=== PATIENT | female | born 1950 | race Caucasian/White ===

== ENCOUNTER → 2016-04-24 | Outpatient (CLI) | payer OTHER, MEDICARE ==
[~2016-04-24] VITALS: Ht 167.6 cm; Wt 68.0 kg
[~2016-04-24] MED LIST: ACTEMRA80 MG/4 ML IV; ALEVE220 MG PO; AMBIEN 10 MG TA10 MG PO; AMBIEN CR12.5 MG PO; ARAVA20 MG PO; ATORVASTATIN CA40 MG PO; BACLOFEN 10MG T10 MG PO; CALCIUM 500 +1 EAC5 PO; CARISOPRODOL 3350 MG PO; CELEXA40 MG PO; CYMBALTA60 MG PO; ESCITALOPRAM OX10 MG PO; FENTANYL; FENTANYL/BUPIVACAINE; FOLIC ACID1 MG PO; FOSAMAX 70 MG T70 MG PO; FUROSEMIDE 20 M20 MG PO; HYDROCODON-ACE1 EAC5 PO; IBUPROFEN 600600 M1 PO; LEXAPRO 10 MG T10 M1 PO; LIDODERM 5%1 PATCH TOP; LISINOPRIL20 MG PO; LISINOPRIL40 MG PO; LYRICA 75 MG CA75 MG PO; MEDROLDOSEPACK PO; METHOTREXA250 MG/10 IM; METHOTREXATE 22.5 MG PO; MOTION RELIEF25 MG PO; MS CONTIN30 MG PO; MULTI VITAMIN1 EACH PO; NEURONTIN 300300 M1 PO; NORCO 10-325 T1 EACH PO; OMEPRAZOLE40 MG PO; OPANA ER15 M1 PO; PERCOCET 10-321 EACH PO; PERCOCET 5-3251 EACH; PERCOCET 5-3251 EACH PO; PREDNISONE 5 MG5 MG PO; PROMS25 WY RECTAL; RECLAST 55 MG/1002 IVPB; VALIUM2 MG PO; VITAMIN D1000 UNI1 PO; VITAMIN E100 UNI3 PO; XANAX 0.5 MG0.5 M1 PO; [UNRECOGNIZED DRUG - OTHER]; [UNRECOGNIZED DRUG - OTHER] IV
--- NOTE | ~2016-04-24 | HPC ---
[facility] [address] [place] [address] PAIN MANAGEMENT CONSULTATION Name: YAMILETH CLEMENS Room #: REG [facility] Dayana.#: [id number] Admission: 04/24/16 Attend Phys: Juan Manuel Valdes MD Discharge: Date of : 54 Report #: [id number] THIS REPORT FOR: //name// CC: Abi Valdes DATE OF REGISTRATION: 04/24/2016. Followup visit for management of intrathecal infusion pump. The patient returns to pain clinic today for refill of her intrathecal infusion pump. She is doing reasonably well. She is grieving a bit at loss of her dog who she had to put down yesterday. She had her puppy for 10 years. She continues to complain of chronic back pains related to multiple back surgeries including her recent thoracic laminectomy and fusion. I do not think she is better perhaps since that last surgery and she does not complain as vocally or she has in the past. Currently, she reports that her medication she thinks is adequate intrathecal infusion pump. She does not need adjustments, pain score is a 6/10, most of the pain is left-sided and also some right sacroiliac joint pain. MEDICATIONS: Lexapro, gabapentin, carisoprodol, hydrocodone, vitamins, lisinopril, naproxen, cholecalciferol, alprazolam, zolpidem, prednisone. PHYSICAL EXAMINATION: GENERAL: She is pleasant today and not as anxious that I have seen her. She seemed calm and relaxed. VITAL SIGNS: Her blood pressure is 142/88, heart rate 104, respirations 100. EXTREMITIES: She has some tenderness across her low back and her scar. Her pump is in the left lower quadrant, nontender. She is able to easily move from sitting to standing position and ambulate without instability. There appears to be no focal weakness of the lower extremities. IMPRESSION: 1. Chronic back pain, status post multiple back surgeries. 2. Management of intrathecal infusion pump. 3. Management of high risk oral medication under terms of an agreement. PROCEDURE: Refill of intrathecal infusion pump. Skin was prepped with ChloraPrep. Skin was anesthetized 22-gauge non-coring needle advanced in the pump. Old medication removed and discarded, refilled with a combination of fentanyl and bupivacaine. Reprogramming session was performed without increasing her dose. Her new YASMIN is 50 months. Her daily dose fentanyl [address] [address] PAIN MANAGEMENT CONSULTATION Name: YAMILETH CLEMENS Room #: REG [facility] Serrato#: [id number] Admission: 04/24/16 Attend Phys: Juan Manuel Valdes MD Discharge: Date of : 54 Report #: [id number] bupivacaine 3.59 mg per day. Low reservoir alarm date is 07/27/2016, we will see her then. <ELECTRONICALLY SIGNED> By: Juan Manuel Valdes MD 05/17/16 1130 1635 0600 Juan Manuel Valdes MD /james
[2016-04-24 13:51] VITALS: BP 142/88
== END | disposition home or self-care (01) ==
LOC: PAIN 07:20
DX: M54.5 Low back pain (principal); G89.29 Other chronic pain; Z98.890 Other specified postprocedural states

== ENCOUNTER → 2016-07-24 | Outpatient (CLI) | payer OTHER, MEDICARE ==
[~2016-07-24] VITALS: Ht 165.1 cm; Wt 66.8 kg
--- NOTE | ~2016-07-24 | HPC ---
[facility] [address] [place] [address] PAIN MANAGEMENT CONSULTATION Name: YAMILETH CLEMENS Room #: REG [facility].#: [id number] Admission: 07/24/16 Attend Phys: Juan Manuel Valdes MD Discharge: Date of : 54 Report #: [id number] THIS REPORT FOR: //name// CC: Abi Valdes DATE OF SERVICE: 07/24/2016 Followup visit for management of intrathecal infusion pump. The patient returns to pain clinic today for refill of her intrathecal infusion pump. She has a combination of bupivacaine and fentanyl. She is on time for her refill. She has 20 mL pump, which is typically providing about 100 days. She reports today that she continues to have low back pain radiating her left side and her sacroiliac joint at level 4/10. She has completed with the current infusion. PHYSICAL EXAMINATION: GENERAL: Pleasant, alert and oriented. No signs of overmedication. VITAL SIGNS: Blood pressure is 153/92, heart rate 79. IMPRESSION: 1. Chronic back pain, status post multiple back surgeries with recent thoracic laminectomy and fusion. 2. Management of intrathecal infusion pump. 3. Management of high risk medication. PROCEDURE: Pump is refilled in the usual fashion. Skin prepped with ChloraPrep and anesthetized 22-gauge non-coring needle advanced in the pump. Old medication removed and discarded. Pump was refilled with fentanyl and bupivacaine. Reprogramming session was performed and she was discharged. She was given a prescription for hydrocodone and Soma under terms of our opioid agreement. Urine drug screen was reviewed. By: [id number] Juan Manuel Valdes MD /nt
[2016-07-24 09:03] VITALS: BP 153/92
== END | disposition home or self-care (01) ==
LOC: PAIN 07:01
DX: M54.5 Low back pain (principal); G89.29 Other chronic pain; Z98.890 Other specified postprocedural states

== ENCOUNTER 2016-08-09 12:08 | Emergency (ER) | payer OTHER, MEDICARE ==
[~2016-08-09] VITALS: Ht 165.1 cm; Wt 65.8 kg
[2016-08-09 13:18] LABS: HEMATOCRIT 31.5 % (37.0-47.0); HEMOGLOBIN 9.7 gm/dL (12.0-15.0); MCH 21.6 pg (26.0-34.0); MCHC 30.9 g/dL (28.0-37.0); MCV 70.1 fL (80.0-100.0); PLATELET COUNT 338 thou/uL (150-400); RDW 18.2 % (10.5-14.5); WBC 10.1 thou/uL (4.0-11.0)
[2016-08-09 13:20] LABS: MANUAL DIFF YES
[2016-08-09] MEDS ORDERED: PRILOSEC 20 MG20 MG PO (13:29)
[2016-08-09] MEDS ORDERED: ANUSOL-HC25 MG RECTAL (13:29)
[2016-08-09 13:30] LABS: CALCIUM 9.2 mg/dL (8.5-10.1); POTASSIUM 3.9 mmol/L (3.5-5.1)
[2016-08-09 13:32] LABS: APTT 24.1 Seconds (24.5-32.8); PROTIME 9.8 Seconds (9.3-11.4)
[2016-08-09 13:35] LABS: ALBUMIN 3.4 g/dL (3.4-5.0); TOTAL BILIRUBIN 0.3 mg/dL (<0.1-1.0); TOTAL PROTEIN 6.8 g/dL (6.4-8.2)
[2016-08-09 13:41] LABS: ABSOLUTE NEUTROPHILS 7.1 thou/uL (1.4-8.2); TOTAL CELL COUNT 100
[2016-08-09 13:42] LABS: ANISOCYTOSIS 1+; HYPOCHROMASIA 1+; MICROCYTES 1+
== END 2016-08-09 14:04 | disposition home or self-care (01) ==
LOC: ER 12:08
PROVIDERS: Emergency Medicine
DX: K62.5 Hemorrhage of anus and rectum (principal); R10.12 Left upper quadrant pain; D64.89 Other specified anemias; Z98.890 Other specified postprocedural states; Z96.653 Presence of artificial knee joint, bilateral; I10 Essential (primary) hypertension; E78.5 Hyperlipidemia, unspecified; F32.9 Major depressive disorder, single episode, unspecified; J45.909 Unspecified asthma, uncomplicated; Z96.89 Presence of other specified functional implants; Z88.1 Allergy status to other antibiotic agents; Z88.5 Allergy status to narcotic agent; Z88.6 Allergy status to analgesic agent

== ENCOUNTER → 2016-08-15 | Outpatient (CLI) | payer OTHER, MEDICARE ==
[~2016-08-15] MED LIST changes: +ANUSOL-HC25 MG RECTAL; +PRILOSEC 20 MG20 MG PO
--- NOTE | ~2016-08-15 | S ---
[facility] [place] [address] SURGICAL PATH RPT PROCEDURE Name: NORMA ZIEGLER Room #: REG [facility].#: [id number] Admission: 08/15/16 Date of : 54 Discharge: Report #: [id number] Path Case #: [id number] PATHOLOGY REPORT COLLECTION DATE: 08/15/2016 RECEIVED DATE: 08/15/2016 SUBMITTING PHYS: Dr. Gerald Alfonso OTHER PHYS: Dr. Abi Stover SPECIMEN(S) RECEIVED: A.Rectal polyp B.Gastric ulcer * * * * * * * * * * * * FINAL DIAGNOSIS: A. Polyp, rectal polyp, endoscopic biopsy: - Tubular adenoma. - Negative for high grade dysplasia. B. Gastric mucosa, gastric ulcer", endoscopic biopsy: - Moderate reactive gastropathy associated with hyperplastic changes. - Negative for intestinal metaplasia or atrophy. - Negative for Helicobacter pylori. COMMENT: Helicobacter pylori immunohistochemical stain performed on block B1- negative. (IUV; 08/18/16) PATHOLOGIST: Deepti Foster M.D. REPORT ELECTRONICALLY SIGNED BY: Deepti Foster M.D. DATE/TIME: 08/18/2016 17:41 * * * * * * * * * * * * GROSS PATHOLOGY: A. Received in formalin labeled "Norma Ziegler, rectal polyp," are three segments of hernandez soft tissue measuring 0.5 x 0.5 x 0.1 cm in aggregate dimensions and ranging from 0.2 to 0.5 cm in maximum dimension. The specimen is submitted entirely in cassette A1. B. Received in formalin labeled "Norma Ziegler, gastric ulcer biopsy," are three segments of hernandez soft tissue measuring 0.8 x 0.6 x 0.1 cm in aggregate dimensions and ranging from 0.2 to 0.6 cm in maximum dimension. The specimen is submitted entirely in cassette B1. (CAA; 08/16/2016) CLINICAL HISTORY: [facility] [place] [address] SURGICAL PATH RPT PROCEDURE Name: NORMA ZIEGLER Room #: REG [facility]#: [id number] Admission: 08/15/16 Date of : 54 Discharge: Report #: [id number] Path Case #: [id number] Anemia, gastric ulcer INITIAL CPT CODE(S): A; 04378 B; 76253, 33850 Professional services performed by [facility] at [address], [place] [address] Technical services performed by [facility] at [address] [place] [address], [address] [address]. [facility] [address] [place] [address] PHONE: [phone] DIRECTOR: Shahid Lee M.D. * * * END OF REPORT * * *
--- NOTE | ~2016-08-15 | P ---
[facility] [place] [address] PROCEDURE REPORT Name: YAMILETH CLEMENS Room #: REG [facility]#: [id number] Admission: 08/15/16 Attend Phys: Gerald Pearce Discharge: Date of : 54 Report #: [id number] THIS REPORT FOR: //name// CC: Gerald Stover MD DATE OF SERVICE: 08/15/2016 PROCEDURE PERFORMED: Colonoscopy with biopsies and upper endoscopy with biopsies. HISTORY OF PRESENT ILLNESS: The patient is a 66-year-old female who has been complaining of blood in her stools. Initially, it was described as bright red blood per rectum; however, there are times when it is somewhat dark and maroon. She has a previous history of colon polyps. She was actually scheduled for colonoscopy with myself back in May, but was unable to tolerate prep. The plan is to proceed with colonoscopy first; if this is negative and no signs of bleeding, then upper endoscopy. She denies any NSAID use. She apparently is on omeprazole on a daily basis. DESCRIPTION OF PROCEDURE: The risks and benefits of the procedure were explained to the patient, those risks including but not limited to bleeding, perforation, the risk of sedation. She understood these risks and gave informed consent. Sedation was given using propofol per anesthesia. Next, a digital rectal exam was initially performed, which was normal. Next, using a standard Plisteninon colonoscope, the scope was placed in the patient's anus and advanced under direct vision to the cecum. The overall prep was excellent. The cecum and ileocecal valve were normal in appearance. Terminal ileum was intubated, normal in appearance. Ascending, transverse, descending and sigmoid colon were normal. In the rectum, there was a 5 mm sessile polyp. This was removed with cold forceps, otherwise normal. On retroflexion, small nonbleeding internal hemorrhoid was noted as well. The scope was then withdrawn and procedure terminated. The patient tolerated the procedure well. The bed was then returned and an upper endoscopy was then performed. Using a standard Lookmashn upper endoscope, the scope was placed in the patient's mouth and advanced under direct vision through the esophagus, stomach and into the second portion of the duodenum. The esophagus was normal throughout. The GE junction was normal. Overall, the gastric mucosa was normal in the fundus and body; however, in the antrum just above the pylorus, a single gastric ulcer was noted. This was clean white based and approximately 8 mm in diameter. There was no stigmata of bleeding. There was some surrounding erythema. Biopsies were obtained to rule out H. pylori. The pylorus was normal and patent. The duodenal bulb, first and second portion were all normal. The scope was then withdrawn and the procedure terminated. The patient tolerated the procedure well. [address] [address] PROCEDURE REPORT Name: YAMILETH CLEMENS Room #: REG [facility] Rojelio#: [id number] Admission: 08/15/16 Attend Phys: Gerald Pearce Discharge: Date of : 54 Report #: [id number] IMPRESSION: 1. Gastric ulcer, possible source of recent gastrointestinal bleed, would recommend a b.i.d. PPI therapy at this time for the next month. 2. Small rectal polyp. 3. Small internal hemorrhoid, possible source of bright red blood per rectum at times, but no active bleeding at this time. A script was given for Analpram to be used on a p.r.n. basis. Thank you for allowing me to participate in her care. <ELECTRONICALLY SIGNED> By: Gerald Alfonso MD 08/16/16 0952 [id number] Gerald Alfonso MD /nt
== END ==
LOC: GI 08:42
DX: K62.1 Rectal polyp (principal); K25.9 Gastric ulcer, unspecified as acute or chronic, without hemorrhage or perforation; K64.8 Other hemorrhoids; D64.9 Anemia, unspecified

== ENCOUNTER → 2017-11-16 | Outpatient (CLI) | payer OTHER, MEDICARE ==
[~2017-11-16] VITALS: Ht 165.1 cm; Wt 66.2 kg
[~2017-11-16] MED LIST changes: +LOPRESSOR25 PO
--- NOTE | ~2017-11-16 | HPC ---
[facility] [address] [place] [address] PAIN MANAGEMENT CONSULTATION Name: YAMILETH CLEMENS Room #: REG [facility] M..#: [id number] Admission: 11/16/17 Attend Phys: Juan Manuel Valdes MD Discharge: Date of : 54 Report #: [id number] THIS REPORT FOR: //name// CC: Abi Valdes DATE OF SERVICE: 11/16/2017 Followup visit for management of intrathecal infusion pump. I last saw the patient about 14 months ago when she moved to [place]. Apparently things did not go well there and she moved to [place] for a time. She has now moved back to [place] to be closer with family. She reports that while she was in [place], she saw one of the preeminent physicians in the field of intrathecal therapy, Dr. Radha Plunkett. Dr. Plunkett replaced her intrathecal pump and catheter. When we last saw her, she was close to a low YASMIN and Dr. Plunkett must have felt that the pump is no longer functioning, replaced it with a 40 mL pump. She reports that the pain relief that she received from her pump is adequate. She does not need any aggressive adjustments at this time. Pump is in the left lower quadrant and nontender. She has had 11 back surgeries. Her most recent was a thoracic laminectomy and fusion. She has chronic pain related to her multiple surgeries. Most of her pain is in the back. At times, it radiates through her left side and through the sacroiliac joint. In the past, she has received some injections including sacroiliac joints at her last visit by Dr. Pacheco, my partner. PHYSICAL EXAMINATION: Today, she is pleasant, alert and oriented, although her hair was dyed . I did not ask. Her blood pressure was 111/74, heart rate 73, respirations 16, BMI 24.3. She is able to easily move from sitting to standing position. Her gait is upright. She has limited range of motion of the lumbar spine. She has tenderness across the many scars of her back. Pain radiates into her legs bilaterally. IMPRESSION: 1. Chronic low back pain with spondylosis and radiculopathy. 2. Post-laminectomy syndrome. She has had 11 back surgeries. 3. Management of intrathecal infusion pump. PROCEDURE: Refill and reprogramming intrathecal pump. The patient was taken to fluoroscopic suite. The patient was placed supine. [address] [address] PAIN MANAGEMENT CONSULTATION Name: YAMILETH CLEMENS Room #: REG [facility] Rojelio#: [id number] Admission: 11/16/17 Attend Phys: Juan Manuel Valdes MD Discharge: Date of : 54 Report #: [id number] Skin was prepped with ChloraPrep. Skin was anesthetized and a 22-gauge non-coring needle advanced into the pump. Old medication removed and discarded. Pump was refilled with fentanyl 2000 mcg/mL, mixed with bupivacaine 20 mg/mL. We kept the program that Dr. Plunkett had initiated in [place], which involves a basal rate of around 200 mcg of fentanyl drug and then allows for 35 mcg patient-assist bolus up to 6 times a day. Interestingly, Dr. Plunkett has allowed her for 3 doses in 1 hour, so she could use all of her activations within a 2-hour period of time. She has had 195 successful activations since last refill. So, it looks like she activates her pump about once or twice a day. We discussed the important issues regarding her intrathecal pump including possibility of overfill at less than 1% in our practice. She should notify Emergency Room immediately if she feels excessively drowsy after placement of the new medication. Refill went without difficulty. There were no complications and she was discharged to her own cognizance. By: [phone] Juan Manuel Valdes MD /nt
[2017-11-16 11:00] VITALS: BP 111/74
== END | disposition home or self-care (01) ==
LOC: PAIN 07:44
DX: Z45.1 Encounter for adjustment and management of infusion pump (principal); M47.26 Other spondylosis with radiculopathy, lumbar region; G89.29 Other chronic pain; Z79.891 Long term (current) use of opiate analgesic; Z79.899 Other long term (current) drug therapy; Z88.6 Allergy status to analgesic agent; Z88.8 Allergy status to other drugs, medicaments and biological substances; Z87.19 Personal history of other diseases of the digestive system

== ENCOUNTER → 2018-05-24 | Outpatient (CLI) | payer OTHER, MEDICARE ==
[~2018-05-24] VITALS: Ht 165.1 cm; Wt 70.3 kg
[~2018-05-24] MED LIST changes: +PROTONIX 20 MG20 M1 PO
--- NOTE | ~2018-05-24 | HPC ---
[facility] [address] [place] [place] [address] PAIN MANAGEMENT CONSULTATION Name: YAMILETH CLEMENS Room #: REG [facility] Dayana.#: [id number] Admission: 05/24/18 ������������������ Attend Phys: Juan Manuel Valdes MD Discharge: ������������������ Date of : 54 Report #: [id number] THIS REPORT FOR: //name// CC: Abi Valdes DATE OF SERVICE: 05/24/2018 Followup visit for chronic back pain, post-laminectomy syndrome with extensive fusion. The patient returns today for refill and reprogramming of intrathecal infusion pump. Dr. Qiu has performed yet another spinal surgery for her. She showed me pictures of her back and she has essentially a fusion from around T6 all the way to the sacrum and then another fusion in her cervical region. There is only a few levels of the spine, which have not been fused. Her intrathecal pump continues to provide some measure of relief for her. I do not provide any oral medications for her at this time. PHYSICAL EXAMINATION: She is pleasant female. Blood pressure 172/90, heart rate is 98, respirations 16. Pain intensity 6. Extensive scar through spine is noted. She is able to independently move from sitting to standing position and ambulate with only mild antalgic features noted. She complains of numbness bilaterally in the lower extremities. She uses a cane during walking. IMPRESSION: 1. Post-laminectomy syndrome with radiculopathy. Post extensive fusion. She has had now 12 spinal surgeries. 2. Management of chronic pain with intrathecal infusion pump reprogramming and refill. DESCRIPTION OF PROCEDURE: The patient was placed supine. Skin was prepped with ChloraPrep. Skin was anesthetized overlying the pump and a 22-gauge non-coring needle advanced in the pump. Old medication removed and discarded. The pump was then refilled with fentanyl 2000 mcg, bupivacaine 20 mg. Reprogramming session was performed. Her daily dose of medication will be fentanyl 200, bupivacaine 2. Next refill will be scheduled for 11/23/2018. Reprogramming session was performed. Followup visit planned in November of 2018 for her next refill. ��������������������������������������������� ���������������������������������������� By: ��������������������������������������������� [id number] Juan Manuel Valdes MD /nt
[2018-05-24 12:51] VITALS: BP 172/90
--- NOTE | 2018-05-24 13:00 | NUR ---
Pain Clinic Assessment: 1. History of Osteoarthritis: YES History of Rheumatoid Arthritis: Not Applicable 2. Height: 5 ft. 5 in. 165.1 cm. Weight: 155.0 lb. oz. 70.308 kg. Patient's BMI: 25.8 3. Vital Signs: BP: 172/90 Pulse: 98 Resp: 16 Temp: 02 Sat: 97 ECG Mon: 4. Pain Intensity: 6 5. Fall Risk: Dizziness: N Needs help standing or walking: Y Fallen in the last 3 months: N Fall risk comments: USES CANE 6. Patient on Blood Thinner: None 7. History of Hypertension: Y 8. Opioid Therapy greater than 6 weeks: Y Opiate Contract Signed: 9. Risk Assessment Tool Provided: 10. Functional Assessment Tool: 11. Recreational Drug Use: Never Drug Type: Tobacco Use: Never Smoker Tobacco Type: Amount or Packs/day: How Many Years: Alcohol Use: No Frequency: Quant:
== END | disposition home or self-care (01) ==
LOC: PAIN 07:11
DX: Z45.1 Encounter for adjustment and management of infusion pump (principal); G89.29 Other chronic pain; M54.16 Radiculopathy, lumbar region; M96.1 Postlaminectomy syndrome, not elsewhere classified; Z98.890 Other specified postprocedural states; Z79.891 Long term (current) use of opiate analgesic; Z88.8 Allergy status to other drugs, medicaments and biological substances; Z79.899 Other long term (current) drug therapy

== ENCOUNTER → 2018-09-06 | Outpatient (CLI) | payer OTHER, MEDICARE ==
[~2018-09-06] VITALS: Ht 165.1 cm; Wt 70.2 kg
--- NOTE | ~2018-09-06 | HPC ---
[facility] [address] [place] [address] PAIN MANAGEMENT CONSULTATION Name: YAMILETH CLEMENS [facility] [id number] Admission: 09/06/18 ������������������ Attend Phys: Juan Manuel Valdes MD Discharge: ������������������ Date of : 54 Report #: [id number] THIS REPORT FOR: //name// CC: Abi Valdes DATE OF SERVICE: 09/06/2018 Followup visit for management of intrathecal infusion pump. The patient returns to clinic today complaining bitterly of pain at a level of 8-9/10. Average daily pain for her over the last few weeks has been 7. She complains of dizziness, pain with standing and walking, and she is a fall risk, having fallen in the last 3 months. She does not feel that the intrathecal pump was providing her adequate relief with fentanyl and bupivacaine infusing. Pain is mostly in the mid back throughout the thoracic spinal region as well as in her low back. She does not have as much pain into her legs at this time. She complains of multiple joint aches and pains as well as myofascial pain. She hurts all over. Comorbidities include asthma, depression, hypertension, rheumatoid arthritis. PHYSICAL EXAMINATION: She is 5 feet 5 inches, 154 pounds, BMI 25.8, blood pressure 148/95, heart rate 94, respirations 16, O2 sat 100%. Her affect is depressed and anxious. She moves from sitting to standing position. She walks with an unstable gait. She uses a cane. She has tenderness and the pain across her low back and thoracic spine. She has tenderness along her scar where she has had extensive fusion. She complains of some numbness with walking bilaterally in the lower extremities. Deep tendon reflexes are absent bilaterally. Generalized weakness is present throughout the lower extremities. IMPRESSION: 1. Post-laminectomy syndrome with radiculopathy, represented mostly by numbness and weakness. She has had an extensive fusion from T6 to the sacrum. 2. Intractable chronic pain with management by intrathecal infusion pump. RECOMMENDATION: Would like to add morphine or hydromorphone to her intrathecal infusion. Because of its lipid solubility, it will spread more broadly through the CSF and may provide better coverage of her pain. New medication will be ordered today. I will have her back in the clinic within 3 days to refill the intrathecal pump with the new medication. [place] [address] PAIN MANAGEMENT CONSULTATION Name: YAMILETH CLEMENS Room #: REG [facility] Serrato#: [id number] Admission: 09/06/18 ������������������ Attend Phys: Juan Manuel Valdes MD Discharge: ������������������ Date of : 54 Report #: [id number] bupivacaine, fentanyl and described rationale for this to her today. New medications were ordered. She was discharged with a followup visit in 3 days. ��������������������������������������������� ���������������������������������������� By: ��������������������������������������������� 1741 [id number] Juan Manuel Valdes MD /nt
[2018-09-06 13:33] VITALS: BP 148/95
--- NOTE | 2018-09-06 13:53 | NUR ---
Pain Clinic Assessment: 1. History of Osteoarthritis: YES History of Rheumatoid Arthritis: Not Applicable 2. Height: 5 ft. 5 in. 165.1 cm. Weight: 154.8 lb. oz. 70.217 kg. Patient's BMI: 25.8 3. Vital Signs: BP: 148/95 Pulse: 94 Resp: 16 Temp: 02 Sat: 100 ECG Mon: 4. Pain Intensity: 7 5. Fall Risk: Dizziness: Y Needs help standing or walking: Y Fallen in the last 3 months: Y Fall risk comments: USES CANE 6. Patient on Blood Thinner: None 7. History of Hypertension: Y 8. Opioid Therapy greater than 6 weeks: Y Opiate Contract Signed: 9. Risk Assessment Tool Provided: 10. Functional Assessment Tool: 11. Recreational Drug Use: Never Drug Type: Tobacco Use: Never Smoker Tobacco Type: Amount or Packs/day: How Many Years: Alcohol Use: No Frequency: Quant:
== END ==
LOC: PAIN 06:47
DX: Z45.1 Encounter for adjustment and management of infusion pump (principal); M96.1 Postlaminectomy syndrome, not elsewhere classified; M54.16 Radiculopathy, lumbar region; R53.1 Weakness; G89.4 Chronic pain syndrome

== ENCOUNTER → 2018-09-09 | Outpatient (CLI) | payer OTHER, MEDICARE ==
[~2018-09-09] VITALS: Ht 165.1 cm; Wt 69.9 kg
--- NOTE | ~2018-09-09 | HPC ---
[facility] [address] [place] [address] PAIN MANAGEMENT CONSULTATION Name: YAMILETH CLEMENS Room #: REG [facility] Dayana.#: [id number] Admission: 09/09/18 ������������������ Attend Phys: Juan Manuel Valdes MD Discharge: ������������������ Date of : 54 Report #: [id number] THIS REPORT FOR: //name// CC: Abi Valdes DATE OF SERVICE: 09/09/2018 Followup visit for adjustment of intrathecal infusion pump with new medication. The patient returns to pain clinic today for refill of her intrathecal infusion pump. New medication was ordered on 09/06/2018. I have added hydromorphone to her fentanyl and bupivacaine. We have some concerns about the location of her catheter and how this short acting dermatomal specific medications bupivacaine and fentanyl are affecting her pain control. Hydromorphone due to its lipophilic properties will spread more broadly throughout the CSF and may provide better pain relief. Because she routinely uses the PTM, the fentanyl may have benefit with its more rapid onset of action, so I will leave it in the mix. There also is continuing evidence of the heterogeneity of the opioid receptor and dual opioid therapy has been shown to be helpful in other patients within our practice. All this was explained to the patient before refilling her pump and also providing a bridge bolus calculated at roughly 60 hours. I have slightly reduced her fentanyl and bupivacaine to compensate for the additional hydromorphone, but she will be able use her PTM to adjust her dose appropriately after the bridge bolus. PHYSICAL EXAMINATION: She remains anxious and complains of significant pain at a level of 8-9. VITAL SIGNS: Her blood pressure is 167/94, heart rate 74, respirations 16. PROCEDURE: Skin was prepped with ChloraPrep. A 20-gauge non-coring needle advanced in the pump. Old medication removed and discarded. Pump was then refilled with a combination of hydromorphone 10, fentanyl 2000, and bupivacaine 20. A total of 10 mL was ordered as a new trial dose. Reprogramming session was then performed with a bridge bolus of the old medication of Fentanyl and bupivacaine, which will last roughly 60 hours. During that time, she cannot use her PTM device. At current dosage, she has enough medication to carry her through 11/04/2018. Discharge will be hydromorphone 0.8 mg/day, bupivacaine 1.6 mg/day, and fentanyl 160 mcg/day. All 3 medications can be increased by up to 74% if all PTM boluses were utilized. Followup visit is planned by phone or in the clinic before 11/04. ��������������������������������������������� ���������������������������������������� By: ��������������������������������������������� [id number] Juan Manuel Valdes MD /nt
[2018-09-09 08:48] VITALS: BP 167/94
--- NOTE | 2018-09-09 09:08 | NUR ---
Pain Clinic Assessment: 1. History of Osteoarthritis: YES History of Rheumatoid Arthritis: Not Applicable 2. Height: 5 ft. 5 in. 165.1 cm. Weight: 154.0 lb. oz. 69.854 kg. Patient's BMI: 25.6 3. Vital Signs: BP: 167/94 Pulse: 74 Resp: 16 Temp: 02 Sat: 100 ECG Mon: 4. Pain Intensity: 6-77 5. Fall Risk: Dizziness: N Needs help standing or walking: Y Fallen in the last 3 months: N Fall risk comments: USES CANE 6. Patient on Blood Thinner: None 7. History of Hypertension: Y 8. Opioid Therapy greater than 6 weeks: Y Opiate Contract Signed: 9. Risk Assessment Tool Provided: 10. Functional Assessment Tool: 11. Recreational Drug Use: Never Drug Type: Tobacco Use: Never Smoker Tobacco Type: Amount or Packs/day: How Many Years: Alcohol Use: No Frequency: Quant:
== END | disposition home or self-care (01) ==
LOC: PAIN 06:51
DX: Z45.1 Encounter for adjustment and management of infusion pump (principal); M54.5 Low back pain; G89.29 Other chronic pain; D64.9 Anemia, unspecified; Z98.890 Other specified postprocedural states; Z88.6 Allergy status to analgesic agent; Z88.8 Allergy status to other drugs, medicaments and biological substances; Z79.899 Other long term (current) drug therapy; Z87.19 Personal history of other diseases of the digestive system

== ENCOUNTER → 2018-11-08 | Outpatient (CLI) | payer OTHER, MEDICARE ==
[~2018-11-08] VITALS: Ht 165.1 cm; Wt 71.2 kg
--- NOTE | ~2018-11-08 | HPC ---
[facility] [place] [place] [address] PAIN MANAGEMENT CONSULTATION Name: YAMILETH CLEMENS Room #: REG [facility] M..#: [id number] Admission: 11/08/18 ������������������ Attend Phys: Juan Manuel Valdes MD Discharge: ������������������ Date of : 54 Report #: [id number] THIS REPORT FOR: //name// CC: Abi Valdes DATE OF SERVICE: 11/08/2018 Followup visit for management of intrathecal infusion pump. The patient returns to pain clinic for refill and reprogramming of intrathecal infusion pump. We did add hydromorphone to her pump at last visit because of her complaints of ongoing pain. The amount was felt to be low and she was provided with a PTM in order to increase her dose as needed. She apparently had some events that were concerning that occurred not immediately after the pump refill, but within the next month. She was slow to questioning, vague on dates and events, different than previous encounters. There was concern about a head injury, but it also could have been related to changes in her intrathecal pump. She was also taking a number of other centrally acting medications including hydrocodone, Soma, Xanax, melatonin and intermediate release Ambien. I do not prescribe those medications for her, providing for her only intrathecal medications. I think it is far more likely that she was overtaking her oral medications for these events. Today, she does seem a bit slower to me than before, but she does report that her pain is much improved. She was not nearly as anxious that she was for her visit on 09/09/2018. I will nonetheless reduce her pain pump slightly and provide her with the PTM in order to make up any difference. PHYSICAL EXAMINATION: GENERAL: She is pleasant and much calmer than I have seen her. VITAL SIGNS: Blood pressure 149/90, heart rate 75, respirations 16. She is 5 feet 5 inches, 157 pounds, BMI is 26. NEUROLOGIC: She moves independently from sitting to standing position, walks with pain score that she scores as a 5/10, this is improvement. NECK: She has tenderness across her scar in her neck where she has had multiple spinal surgeries. IMPRESSION: 1. Chronic pain related to multiple spinal surgeries. She has now been operated on 12 times involving her spine, cervical, thoracic and lumbar. 2. Management of chronic pain with intrathecal infusion pump, reprogramming, lowering of dose and refill. [facility] [address] [place] [address] PAIN MANAGEMENT CONSULTATION Name: YAMILETH CLEMENS Room #: REG JANIYA Serrato#: [id number] Admission: 11/08/18 ������������������ Attend Phys: Juan Manuel Valdes MD Discharge: ������������������ Date of : 54 Report #: [id number] PROCEDURE: Skin was prepped with ChloraPrep and 22-gauge non-coring needle advanced in the pump. Old medication was removed and discarded per protocol. The pump was then refilled with fentanyl, bupivacaine, and hydromorphone. A reprogramming session was performed. She will receive now 0.75 mg of hydromorphone daily, bupivacaine 1.5 mg and fentanyl 150 mcg per day. The PTM will allow her to increase this by roughly 75%, but she has to punch it every 4 hours in order to receive the medication. Copies of the reprogramming information were reviewed by myself and the nurse initially and a copy given to the patient. She will follow up in the pain clinic for pump refill now in 180 days. She has adequate medication to carry her through a bit farther than that. ��������������������������������������������� ���������������������������������������� By: ��������������������������������������������� [id number] Juan Manuel Valdes MD /nt
[2018-11-08 13:20] VITALS: BP 149/90
--- NOTE | 2018-11-08 13:46 | NUR ---
Pain Clinic Assessment: 1. History of Osteoarthritis: NECK History of Rheumatoid Arthritis: YES 2. Height: 5 ft. 5 in. 165.1 cm. Weight: 157.0 lb. oz. 71.215 kg. Patient's BMI: 26.1 3. Vital Signs: BP: 149/90 Pulse: 75 Resp: 16 Temp: 02 Sat: 98 ECG Mon: 4. Pain Intensity: 5 5. Fall Risk: Dizziness: N Needs help standing or walking: N Fallen in the last 3 months: Y Fall risk comments: USES CANE 6. Patient on Blood Thinner: None 7. History of Hypertension: Y 8. Opioid Therapy greater than 6 weeks: Y Opiate Contract Signed: 9. Risk Assessment Tool Provided: 10. Functional Assessment Tool: 11. Recreational Drug Use: Never Drug Type: Tobacco Use: Never Smoker Tobacco Type: Amount or Packs/day: How Many Years: Alcohol Use: No Frequency: Quant:
== END | disposition home or self-care (01) ==
LOC: PAIN 06:57
DX: Z45.1 Encounter for adjustment and management of infusion pump (principal); G89.29 Other chronic pain; Z98.890 Other specified postprocedural states; Z79.891 Long term (current) use of opiate analgesic; Z88.8 Allergy status to other drugs, medicaments and biological substances; Z79.899 Other long term (current) drug therapy

== ENCOUNTER → 2019-06-02 | Outpatient (CLI) | payer OTHER ==
[~2019-06-02] VITALS: Ht 167.6 cm; Wt 73.8 kg
--- NOTE | ~2019-06-02 | HPC ---
[facility] [place] [address] PAIN MANAGEMENT CONSULTATION Name: YAMILETH CLEMENS Room #: REG [facility].#: [id number] Admission: 06/02/19 Attend Phys: Juan Manuel Valdes MD Discharge: Date of : 54 Report #: [id number] THIS REPORT FOR: cc: Abi Stover MD, Kristin E. MD Morgan,Juan Manuel Pimentel MD ~ CC: Abi Valdes DATE OF SERVICE: 06/02/2019 Followup visit for intrathecal pump refill and reprogramming. The patient returns to pain clinic today for refill and reprogramming of her intrathecal infusion pump. She complains of pain intensity is 6/10. She has had recent back surgery again. She has been using her PTM device, does not feel it is working correctly, but as we did interrogate we understand that she has been using it more frequently than that will allow, we will reprogram accordingly. On PQRS review, she has a history of cervical spondylosis and rheumatoid arthritis. Her BMI is 26.3. Blood pressure 158/92, heart rate 81, respirations 16, O2 sat 100% on room air. Pain intensity is 6. She uses a cane and is considered a fall risk because of the need for an assist device. She is on no blood thinners, but takes medication for hypertension. All medications were reviewed and reconciled. She is on an opioid agreement. She denies use of tobacco and alcohol. IMPRESSION: 1. Chronic intractable pain related to multiple spinal surgeries, now 13 total involving cervical, lumbar, thoracic spine. 2. Management of intrathecal pump with refill and reprogramming session. PROCEDURE: Skin was prepped with ChloraPrep and 22-gauge non-coring needle advanced in the pump. Old medication removed and discarded per our protocol. Pump was then refilled with fentanyl, bupivacaine and hydromorphone combination and a reprogramming session performed. A reprogram of the PTM to allow for the opportunity every 4 hours. Her daily dose is 0.75 mg of hydromorphone, bupivacaine 1.5 and fentanyl 150 mcg. Her refill appointment is scheduled for 4-6 months. No oral medications were ordered for her today. By: [id number] Juan Manuel Valdes MD /nt
[2019-06-02 12:45] VITALS: BP 158/92
--- NOTE | 2019-06-02 12:53 | NUR ---
Pain Clinic Assessment: 1. History of Osteoarthritis: NECK History of Rheumatoid Arthritis: YES 2. Height: 5 ft. 6 in. 167.6 cm. Weight: 162.6 lb. oz. 73.755 kg. Patient's BMI: 26.3 3. Vital Signs: BP: 158/92 Pulse: 81 Resp: 16 Temp: 02 Sat: 100 ECG Mon: 4. Pain Intensity: 6 5. Fall Risk: Dizziness: N Needs help standing or walking: N Fallen in the last 3 months: N Fall risk comments: USES CANE 6. Patient on Blood Thinner: None 7. History of Hypertension: Y 8. Opioid Therapy greater than 6 weeks: Y Opiate Contract Signed: 9. Risk Assessment Tool Provided: 10. Functional Assessment Tool: 11. Recreational Drug Use: Never Drug Type: Tobacco Use: Never Smoker Tobacco Type: Amount or Packs/day: How Many Years: Alcohol Use: No Frequency: Quant:
== END | disposition home or self-care (01) ==
LOC: PAIN 06:53
DX: Z45.1 Encounter for adjustment and management of infusion pump (principal); G89.29 Other chronic pain; I10 Essential (primary) hypertension; M06.9 Rheumatoid arthritis, unspecified; Z98.890 Other specified postprocedural states; Z79.891 Long term (current) use of opiate analgesic; Z88.8 Allergy status to other drugs, medicaments and biological substances; Z79.899 Other long term (current) drug therapy

== ENCOUNTER → 2019-12-15 | Outpatient (CLI) | payer OTHER ==
[~2019-12-15] VITALS: Ht 165.1 cm; Wt 71.2 kg
[~2019-12-15] MED LIST changes: +ARAVA10 MG PO; +CELEXA 10 MG TA10 M1 PO; +MELOXICAM15 MG PO
--- NOTE | ~2019-12-15 | HPC ---
[facility] [place] [address] PAIN MANAGEMENT CONSULTATION Name: YAMILETH CLEMENS [id number] Admission: 12/15/19 Attend Phys: Juan Manuel Valdes MD Discharge: Date of : 54 Report #: [id number] THIS REPORT FOR: cc: Abi Stover MD, Kristin E. MD Morgan,Juan Manuel Pimentel MD ~ CC: Abi Valdes DATE OF SERVICE: 12/15/2019 Followup visit for chronic pain management of intrathecal infusion pump. The patient returns to pain clinic today for refill of her intrathecal infusion pump. Her pain control is good at 4. She is very active, moves lawn, does many day-to-day activities with good management of her chronic symptoms. Her pump is infusing a combination of hydromorphone, fentanyl and bupivacaine. The dual opioid therapy seems to be helpful and we will continue it. Bupivacaine seems to be providing some benefit to her as well. She is at relatively low doses of hydromorphone 0.8 mg and fentanyl 180 mcg. Bupivacaine is at 1.8 mg per day. No changes indicated. PQRS: Positive for osteoarthritis of the neck. BMI of 26.1, blood pressure 155/99, heart rate 64, respirations 16, pain intensity 4. She occasionally uses a cane, but is walking independently today. She is on no blood thinners. Hypertension is treated. All medications reviewed and reconciled. She is also on an opioid agreement with our clinic, although I am not currently filling oral opioids for her. She was transitioned completely to intrathecal medicines. Functional assessment score is 44/70. Denies tobacco and alcohol. PHYSICAL EXAMINATION: VITAL SIGNS: As noted. GENERAL: She has multiple scars throughout her thoracic and lumbar spine from previous surgery. She does note that there is an area of intense discomfort, just to the medial aspect of the scapula. She describes it as knot. It does not feel necessarily like muscle spasm. We discussed the possibility of an MRI or a CT scan of the area if the pain is not improved over the next few weeks. It is rather firm to palpation. PLAN: Refill and reprogram intrathecal infusion pump. Skin was prepped with ChloraPrep. Skin anesthetized. A 22-gauge non-coring needle advanced in the pump. Old medication removed and discarded per protocol. Pump was then refilled with her medication and reprogrammed. Copy of [facility] [address] [place] [address] PAIN MANAGEMENT CONSULTATION Name: YAMILETH CLEMENS [id number] Admission: 12/15/19 Attend Phys: Juan Manuel Valdes MD Discharge: Date of : 54 Report #: [id number] reprogramming information was provided to her and she was discharged with a followup visit scheduled in 4-5 months. Her pump has long duration. By: [id number] Juan Manuel Valdes MD /james
[2019-12-15 14:06] VITALS: BP 155/99
--- NOTE | 2019-12-15 14:25 | NUR ---
Pain Clinic Assessment: 1. History of Osteoarthritis: NECK History of Rheumatoid Arthritis: YES 2. Height: 5 ft. 5 in. 165.1 cm. Weight: 157.0 lb. oz. 71.215 kg. Patient's BMI: 26.1 3. Vital Signs: BP: 155/99 Pulse: 64 Resp: 16 Temp: 02 Sat: 100 ECG Mon: 4. Pain Intensity: 4 5. Fall Risk: Dizziness: N Needs help standing or walking: N Fallen in the last 3 months: N Fall risk comments: USES CANE 6. Patient on Blood Thinner: None 7. History of Hypertension: Y 8. Opioid Therapy greater than 6 weeks: Y Opiate Contract Signed: 9. Risk Assessment Tool Provided: 10. Functional Assessment Tool: 11. Recreational Drug Use: Never Drug Type: Tobacco Use: Never Smoker Tobacco Type: Amount or Packs/day: How Many Years: Alcohol Use: No Frequency: Quant:
== END | disposition home or self-care (01) ==
LOC: PAIN 06:49
PROVIDERS: ATTEND Anesthesiology Pain Medicine
DX: G89.29 Other chronic pain (principal); D64.9 Anemia, unspecified; Z79.899 Other long term (current) drug therapy; Z88.8 Allergy status to other drugs, medicaments and biological substances

== ENCOUNTER → 2021-01-07 | Outpatient (CLI) | payer OTHER, MEDICARE ==
[~2021-01-07] VITALS: Ht 165.1 cm; Wt 73.6 kg
[~2021-01-07] MED LIST changes: +NEURONTIN300 MG PO
[2021-01-07 13:04] VITALS: BP 126/83
--- NOTE | 2021-01-07 13:27 | NUR ---
Pain Clinic Assessment: 1. History of Osteoarthritis: NECK History of Rheumatoid Arthritis: YES 2. Height: 5 ft. 5 in. 165.1 cm. Weight: 162.2 lb. oz. 73.573 kg. Patient's BMI: 27.0 3. Vital Signs: BP: 126/83 Pulse: 90 Resp: 20 Temp: 02 Sat: 98 ECG Mon: 4. Pain Intensity: 6 5. Fall Risk: Dizziness: N Needs help standing or walking: Y Fallen in the last 3 months: N Fall risk comments: USES CANE 6. Patient on Blood Thinner: None 7. History of Hypertension: Y 8. Opioid Therapy greater than 6 weeks: Y Opiate Contract Signed: 9. Risk Assessment Tool Provided: 1-LOW RISK 10. Functional Assessment Tool: 11. Recreational Drug Use: Never Drug Type: Tobacco Use: Never Smoker Tobacco Type: Amount or Packs/day: How Many Years: Alcohol Use: No Frequency: Quant:
== END | disposition home or self-care (01) ==
LOC: PAIN 09:25
PROVIDERS: ATTEND Anesthesiology Pain Medicine
DX: Z45.1 Encounter for adjustment and management of infusion pump (principal); M54.16 Radiculopathy, lumbar region; G89.29 Other chronic pain; M54.2 Cervicalgia; Z98.890 Other specified postprocedural states; Z79.899 Other long term (current) drug therapy; Z88.8 Allergy status to other drugs, medicaments and biological substances